=== PATIENT | male | born 1995 | race Caucasian/White ===

== ENCOUNTER 2016-07-06 13:12 | Emergency (ER) | payer SELFPAY ==
[~2016-07-06 13:12] MED LIST: NO MEDICATIONS; ORAPRED PO; PEPTO-BISMOL262 M1; ROBAXIN PO; TOBRADEX EYE DRO5 ML OP; VOLTAREN75 MG PO; ZOFRAN PO
== END 2016-07-06 14:32 | disposition home or self-care (01) ==
LOC: SED 13:12
DX: R06.02 Shortness of breath (principal); R06.2 Wheezing; F17.200 Nicotine dependence, unspecified, uncomplicated; Z88.0 Allergy status to penicillin
CPT/HCPCS: 87651; 94644; 99283